=== PATIENT | female | born 1950 | race Caucasian/White ===

== ENCOUNTER → 2017-12-22 09:06 | Outpatient (CLI) | payer MEDICARE, OTHER, SELFPAY ==
[2017-12-22 11:06] LABS: Alanine Aminotransferase 24 IU/L (9-52); Aspartate Aminotransferase 22 IU/L (14-36); Blood Urea Nitrogen 21 mg/dL (7-17); Calcium 9.9 mg/dL (8.4-10.2); Carbon Dioxide 29 mmol/L (22-32); Chloride 101 mmol/L (98-107); Estimated Glomerular Filt Rate > 60.0 mL/min (>60); Glucose 98 mg/dL (80-110); HEMOLYSIS < 15 (0-50); Potassium 4.7 mmol/L (3.4-5.1); Sodium 141 mmol/L (137-145)
[2017-12-22 13:04] LABS: Cholesterol 202 mg/dL (140-199); HDL Cholesterol 50 mg/dL (40-60); LDL Cholesterol Calculated 82 mg/dL (<100); Triglycerides 349 mg/dL (35-150)
== END ==
PROVIDERS: PCP Internal Medicine; Visit Provider Internal Medicine
DX: M54.5 Low back pain (principal); E78.5 Hyperlipidemia, unspecified
CPT/HCPCS: 36415; 80048; 80061; 84450; 84460

== ENCOUNTER 2018-02-08 10:20 | Day surgery (SDC) | payer MEDICARE, OTHER, SELFPAY ==
--- NOTE | 2018-02-08 | PATH_ITS ---
[facility] Accession Number: [id number] . 01 Material submitted: . ASCENDING COLON POLYP . 02 Diagnosis: Ascending Colon, Polyp, Biopsy: Benign lymphoid aggregate. MRV/02/09/2018 . 02 Electronically signed: . Aleta Serrato MD, Pathologist NPI- [id number] . 01 Gross description: . Received one formalin-filled container labeled with the patient's name and labeled ascending colon polyp. The specimen consists of a 0.3 cm portion of tissue. Entirely submitted in one cassette. ([facility] – [place], [place]:[id number]) /[facility] . 02 Pathologist provided ICD-10: K63.5 . 02 CPT . 526410 Specimen Comment: A duplicate report has been generated due to demographic updates. Performed at: 01 [facility] [address] [id number] MD Lamin Conroy MD Phone: [phone] Performed at: 02 [facility] [address] [place] [id number] MD Norbert Quiroz MD Phone: [phone]
--- NOTE | 2018-02-08 10:35 | PM.HP.1 ---
History of Present Illness Date Patient Seen: 02/08/18 Chief complaint: colonoscopy [id number] Narrative: 67-year-old female with a history of hyperlipidemia and family history of anal cancer in her mother who is here for colon cancer screening is a primary procedure with no office consult. The patient has a history of a colonoscopy done around 10 years ago which had no findings. The patient currently has no active GI symptoms or alarm symptoms. Meds Home Medications Medication Instructions Recorded Confirmed Type gabapentin 300 mg PO DAILY 02/08/18 02/08/18 History lovastatin 40 mg PO DAILY 02/08/18 02/08/18 History Allergies Allergy/AdvReac Type Severity Reaction Status Date / Time amoxicillin [From Augmentin] Allergy Verified 02/08/18 10:44 clavulanic acid Allergy Verified 02/08/18 10:44 [From Augmentin] Review of Systems Review of Systems All systems reviewed & are unremarkable except as noted in HPI and below Exam Narrative Exam Narrative: General: Patient is overweight, not in apparent distress Cardiovascular: Regular rate and rhythm, no murmurs, rubs, or gallops; no evidence of edema; no palpable abdominal aortic aneurysm Gastrointestinal: Normoactive bowel sounds, soft, nontender, nondistended, no rebound tenderness, no hepatosplenomegaly, no evidence of hernia Assessment & Plan Plan: Assessment/Plan Narrative: 67-year-old female with a family history of anal cancer in her mother (80's) here for colon cancer screening. She has no active GI symptoms. She is at average risk for colorectal cancer given her mother's age. Regarding the procedure(s), the risks and potential complications, benefits, and alternatives (including not doing the procedure) were discussed with the patient. The risks include but are not limited to bleeding, infection, perforation which may require surgical intervention, missed lesions, and adverse reactions to sedative medicines. After a question and answer period, the patient agreed to proceed with the procedure(s) and gives informed consent.
[2018-02-08 10:36] VITALS: BP 142/85; PULSE 84; RESP 16; TEMP 36.9; O2SAT 94; BMI 28.3
[2018-02-08] MEDS: SODIUM CHLORIDE 0.9% 1,000 ML 70 ML IV (10:36)
[2018-02-08] MEDS: MIDAZOLAM 5 MG/5 ML VIAL IV (11:18)
[2018-02-08] MEDS: fentaNYL 250 MCG/5 ML INJ IV (11:18)
--- NOTE | 2018-02-08 11:33 | PM.OP.ENDO ---
Operative Date/Time/Diagnoses Date of procedure: 02/08/18 Procedure Notes Procedure in detail: Surgeon: Marvin Daniel MD Procedure: Colonoscopy with polypectomy Preoperative diagnosis: Colon cancer screening, family history anal cancer in patient's mother (80's) Postoperative diagnosis: Colon polyp status post polypectomy, sigmoid diverticulosis, grade 1 internal hemorrhoids Medications: Conscious sedation using 5 mg IV of Midazolam and 150 mcg IV of Fentanyl Preanesthesia Assessment An H and P was performed/updated and the Px?s ASA class is 2. The procedure was discussed in detail with the patient. The potential risks and complications including infection, bleeding, missed lesions, perforation, need for surgery in case of perforation, prolonged hospital stay, and were explained. A brief question and answer period was allotted and once all questions were answered, informed consent was obtained. The patient was brought back to the procedure room and placed on standard monitoring. The patient?s vital signs were monitored continuously throughout the entire procedure. Prior to starting, a timeout was performed to confirm the patient?s identity, allergies, medications, and procedure. Procedure in detail The patient was placed in left lateral decubitus position and once adequate sedation was obtained a KINZA was performed. The digital rectal examination did not reveal any palpable lesions. The tip of the colonoscope was placed in the anal canal and advanced without difficulty all the way to the cecum which was identified by the appendiceal orifice and the ileocecal valve. The terminal ileum was intubated to a distance of 5 cm from the ileocecal valve and the mucosa was normal. The colonoscope was brought back to the cecum and careful examination of all harvey of the colon was performed with irrigation of any residual stool. In the ascending colon, a 2 mm sessile polyp was found and was removed by means of cold Jumbo forceps. Excision and retrieval were complete with minimal bleeding. In the sigmoid colon, there were multiple medium and large-sized diverticula. Retroflexion was performed in the rectum and this revealed grade 1 internal hemorrhoids. There were no anal lesions seen on this exam. The patient tolerated the procedure well and will be brought back to the recovery area to be discharged once criteria are met. The prep was judged to be good and adequate to identify polyps less than 5 mm. The withdrawal time was 10 min. The total physician intraservice time was 22 min. Complications There were no complications and estimated blood loss was minimal. Recommendations: Resume previous diet Continue outPx medications Follow up pathology results Repeat colonoscopy in 5 or 10 years depending on pathology results An emergency contact number was given to the patient for any complications related to the procedure
[2018-02-08 11:36] VITALS: BP 127/79; PULSE 73; RESP 15; TEMP 36.3; O2SAT 95
--- NOTE | 2018-02-08 11:37 | PM.DS.1 ---
History of Present Illness Chief complaint: colonoscopy [id number] Narrative: 67-year-old female with a history of hyperlipidemia and family history of anal cancer in her mother who is here for colon cancer screening is a primary procedure with no office consult. The patient has a history of a colonoscopy done around 10 years ago which had no findings. The patient currently has no active GI symptoms or alarm symptoms. Discharge Providers Primary care physician: Lynn Roche MD Discharge provider: Marvin Daniel MD Exam Vital Signs (past 8 hours): - 02/08/18 10:36 Temperature 98.4 F Pulse Rate 84 Respiratory Rate 16 Blood Pressure 142/85 H Pulse Oximetry 94 Oxygen Delivery Method Room Air Narrative Exam Narrative: General: Patient is well developed, not in apparent distress Cardiovascular: Regular rate and rhythm, no murmurs, rubs, or gallops; no evidence of edema; no palpable abdominal aortic aneurysm Gastrointestinal: Normoactive bowel sounds, soft, nontender, nondistended, no rebound tenderness, no hepatosplenomegaly, no evidence of hernia Discharge Plan Discharge Plan Patient Disposition: Home Discharge Med Rec/Prescriptions Prescriptions: Continue gabapentin 300 mg Capsule 300 mg PO DAILY RF: 0 lovastatin 40 mg Tablet 40 mg PO DAILY RF: 0 Discharge Orders: Discharge (Order); Ordered 02/08/18 Ordered By: Marvin Daniel Provider Discharge Instructions Diet: Diet as Tolerated Visit Report/Discharge Packet Stand Alone Forms: Surgery Discharge Discharge Data Primary Care Provider: Lynn Roche Attending Provider: Marvin Daniel
[2018-02-08 11:41] VITALS: BP 139/87; PULSE 75; RESP 24; O2SAT 97
[2018-02-08 12:25] VITALS: BP 124/79; PULSE 65; RESP 20; TEMP 36.6; O2SAT 97
== END 2018-02-08 12:35 | disposition home or self-care (01) ==
PROVIDERS: PCP Internal Medicine; Visit Provider Internal Medicine Gastroenterology
PROC: 0DJD8ZZ Inspection of Lower Intestinal Tract, Via Natural or Artificial Opening Endoscopic (ICD-10-PCS; CPT 45378; principal; 2018-02-08 11:30)
DX: Z12.11 Encounter for screening for malignant neoplasm of colon (principal); Z80.0 Family history of malignant neoplasm of digestive organs; K57.30 Diverticulosis of large intestine without perforation or abscess without bleeding; K64.0 First degree hemorrhoids; E78.5 Hyperlipidemia, unspecified; K63.5 Polyp of colon
CPT/HCPCS: 45380; 88305; J2250; J3010

== ENCOUNTER → 2018-03-20 09:34 | Outpatient (CLI) | payer MEDICARE, OTHER, SELFPAY ==
--- NOTE | 2018-03-20 | DI.RAD.S_ITS ---
This blank DEXA report has been sent in error by the PACS system. The correct and complete report will be forthcoming in 1-2 days. Thank you for your patience and understanding. Dictated by: Scooter Carr M.D. on 03/20/2018 at 10:06 Approved by: Scooter Carr M.D. on 03/20/2018 at 10:09
== END ==
PROVIDERS: PCP Internal Medicine; Visit Provider Internal Medicine
DX: M85.852 Other specified disorders of bone density and structure, left thigh (principal); Z87.891 Personal history of nicotine dependence
CPT/HCPCS: 77080

== ENCOUNTER 2018-08-10 11:09 | Emergency (ER) | payer MEDICARE, OTHER, SELFPAY ==
[2018-08-10] VITALS (8 sets, daily range): BP systolic 127–166; BP diastolic 65–99; PULSE 89–123; RESP 18–22; TEMP 37.2; O2SAT 98–99; BMI 28.3
[2018-08-10] MEDS: SODIUM CHLORIDE 0.9% 1,000 ML 1000 ML IV (11:37)
[2018-08-10 11:39] LABS: Add Manual Diff / Slide Review NO; Basophils Absolute Auto 100 /uL (0-100); Basophils Percent Auto 0.3 % (0-2); Eosinophils Absolute Auto 0 /uL (0-450); Eosinophils Percent Auto 0.1 % (2-4); Hematocrit 44.9 % (36-46); Hemoglobin 14.9 g/dL (12.0-16.0); Lymphocytes Absolute Auto 1800 /uL (1100-4500); Lymphocytes Percent Auto 10.4 % (25-40); Mean Corpuscular HGB Conc 33.2 % (30-36); Mean Corpuscular Hemoglobin 30.9 PG (26-34); Mean Corpuscular Volume 93.1 fL (80-100); Monocytes Absolute Auto 1100 /uL (0-900); Monocytes Percent Auto 6.6 % (3-14); Neutrophils Absolute Auto 14100 /uL (1500-7000); Neutrophils Percent Auto 82.6 % (50-75); Platelet Count 304 X10^3/uL (150-400); Red Blood Cell Count 4.82 X10^6/uL (4.0-5.2); White Blood Cell Count 17.1 X10^3/uL (4.5-11.0)
[2018-08-10 11:49] LABS: Bacteria Urine Many (>30); Culture Indicated Urine Specimen Cultured; RBC Urine 5-10/HPF (0-5/HPF); WBC Urine 5-10/HPF (0-5/HPF)
[2018-08-10 11:57] LABS: Alanine Aminotransferase 28 IU/L (9-52); Albumin 4.9 g/dL (3.5-5.0); Albumin Globulin Ratio 1.6 (1.0-2.8); Alkaline Phosphatase 82 U/L (38-126); Aspartate Aminotransferase 23 IU/L (14-36); BUN Creatinine Ratio 31.7 (6-22); Bilirubin Total 0.6 mg/dL (0.2-1.3); Blood Urea Nitrogen 19 mg/dL (7-17); Calcium 9.9 mg/dL (8.4-10.2); Carbon Dioxide 24 mmol/L (22-32); Chloride 103 mmol/L (98-107); Estimated Glomerular Filt Rate > 60.0 mL/min (>60); Globulin 3.1 g/dL (1.7-4.1); Glucose 134 mg/dL (80-110); HEMOLYSIS < 15 (0-50); Potassium 3.9 mmol/L (3.4-5.1); Sodium 138 mmol/L (137-145)
--- NOTE | 2018-08-10 12:09 | ED.ABDPAIN ---
HPI - Abdominal Pain <Monica Castro PA-C - Last Filed: 08/10/18 21:44> General Chief Complaint: Abdominal Pain Stated Complaint: abdominal pain Time Seen by Provider: 08/10/18 11:14 Source: patient Mode of arrival: ambulatory Limitations: no limitations History of Present Illness HPI narrative: This 68-year-old female complains of onset abdominal pain sometime yesterday afternoon which has been worsening since. She states that the pain is ?like a horrible knife? in her central, lower abdomen. She states that the pain waxes and wanes where it will improve to some degree, then will have the knife like pain that can last up to a couple of minutes. She states pain is worse lying flat, a little bit better sitting up. No other exacerbating or alleviating features that she can tell. She states that she ate dinner last night and this did not seem to make any difference. She had coffee and half a muffin today at breakfast and no change. She denies fever, chills, sweats. She denies any nausea or vomiting. She denies any bowel habit changes or blood in the stools and had a normal bowel movement today. She denies any hematuria or new urinary symptoms. She denies any chest pain or dyspnea. She states that when she has the spasm like pain she can feel it a little bit in her back but she thinks that is the same area as her sciatica. She states that she took some ibuprofen last night without relief. She denies any other complaints on systems review Related Data Home Medications Medication Instructions Recorded Confirmed gabapentin 300 mg PO DAILY 02/08/18 02/08/18 lovastatin 40 mg PO DAILY 02/08/18 02/08/18 Previous Rx's Medication Instructions Recorded hydrocodone-acetaminophen [[place]] 1 tab PO Q4H PRN #14 tab 08/10/18 Allergies Allergy/AdvReac Type Severity Reaction Status Date / Time amoxicillin [From Augmentin] Allergy Verified 02/08/18 10:44 clavulanic acid Allergy Verified 02/08/18 10:44 [From Augmentin] Review of Systems <Monica Castro PA-C - Last Filed: 08/10/18 21:44> Review of Systems ROS Unobtainable: All systems reviewed & are unremarkable except as noted in HPI and below PFSH <GEOVANNA Cowan Last Filed: 08/10/18 21:44> Medical History Diverticulosis (Chronic) History of colon polyps (Chronic) Hyperlipidemia (Chronic) Sciatica (Chronic) Family history non-contributory (Resolved) Surgical History (Updated 08/10/18 @ 12:27 by Monica Castro PA-C) History of left wrist replacement (Resolved) Social History household members: spouse Smoking Status: Current some day smoker Social History household members: spouse Smoking Status: Current some day smoker Exam <Monica Castro PA-C - Last Filed: 08/10/18 21:44> Narrative Exam Narrative: GENERAL APPEARANCE: Patient sitting comfortably, in no distress. HEENT: PERRL, EOMI, no scleral icterus, normal oropharynx NECK: Supple LUNGS: Clear to auscultation bilaterally. HEART: Rate and rhythm regular, normal S1 and S2, no S3 or S4. ABDOMEN: Soft, nondistended, bowel sounds present x 4 quadrants, no masses palpable, no hepatosplenomegaly. lower quadrant midline tenderness to palpation without guarding or rebound. no lateral tenderness or CVAT EXTREMITIES: No edema DERMATOLOGIC: No jaundice or exanthem NEUROLOGIC: Alert and oriented with normal speech and coordination Initial Vital Signs Initial Vital Signs: Vital Signs Temperature 99.0 F 08/10/18 11:13 Pulse Rate 123 H 08/10/18 11:13 Respiratory Rate 08/10/18 11:13 Blood Pressure 166/99 H 08/10/18 11:13 Pulse Oximetry 99 08/10/18 11:13 <Lisa Messer MD - Last Filed: 08/20/18 07:36> Initial Vital Signs Initial Vital Signs: Vital Signs Temperature 99.0 F 08/10/18 11:13 Pulse Rate 123 H 08/10/18 11:13 Respiratory Rate 22 08/10/18 11:13 Blood Pressure 166/99 H 08/10/18 11:13 Pulse Oximetry 99 08/10/18 11:13 Course <Monica Castro PA-C - Last Filed: 08/10/18 21:44> Additional Information: The patient is feeling significantly improved at the time of discharge, she is feeling hungry. She is tolerating oral medications and does not have nausea currently, appears appropriate for outpatient treatment. First doses of Flagyl and Levaquin were given. She agreed to return if acutely worsening symptoms, otherwise will follow up with her PCP after a few days on antibiotics. Dietary instructions given Orders Ordered: Discontinued Medications Hydromorphone HCl (Dilaudid) 0.5 mg IV NOW ONE Stop: 08/10/18 12:19 Last Admin: 08/10/18 12:26 Dose: 0.5 mg Sodium Chloride (Normal Saline 0.9%) 1,000 mls @ 1,000 mls/hr IV BOLUS ONE Stop: 08/10/18 12:14 Last Infusion: 08/10/18 12:37 Dose: 0 mls/hr Admin: 08/10/18 11:37 Dose: 1,000 mls/hr Ketorolac Tromethamine (Toradol) 30 mg IV NOW ONE Stop: 08/10/18 12:19 Last Admin: 08/10/18 12:26 Dose: 30 mg Levofloxacin (Levaquin) 750 mg PO NOW ONE Stop: 08/10/18 13:38 Last Admin: 08/10/18 13:56 Dose: 750 mg Metronidazole (Metronidazole) 500 mg PO NOW ONE Stop: 08/10/18 13:38 Last Admin: 08/10/18 13:57 Dose: 500 mg Vital Signs - 8 hr 08/10/18 14:00 08/10/18 15:05 08/10/18 15:08 Pulse Rate 100 H 97 H 97 H Respiratory Rate 18 18 18 Blood Pressure 127/65 Blood Pressure [Left Arm] 135/83 127/65 Pulse Oximetry 98 98 98 <Lisa Messer MD - Last Filed: 08/20/18 07:36> Orders Ordered: Discontinued Medications Hydromorphone HCl (Dilaudid) 0.5 mg IV NOW ONE Stop: 08/10/18 12:19 Last Admin: 08/10/18 12:26 Dose: 0.5 mg Sodium Chloride (Normal Saline 0.9%) 1,000 mls @ 1,000 mls/hr IV BOLUS ONE Stop: 08/10/18 12:14 Last Infusion: 08/10/18 12:37 Dose: 0 mls/hr Admin: 08/10/18 11:37 Dose: 1,000 mls/hr Ketorolac Tromethamine (Toradol) 30 mg IV NOW ONE Stop: 08/10/18 12:19 Last Admin: 08/10/18 12:26 Dose: 30 mg Levofloxacin (Levaquin) 750 mg PO NOW ONE Stop: 08/10/18 13:38 Last Admin: 08/10/18 13:56 Dose: 750 mg Metronidazole (Metronidazole) 500 mg PO NOW ONE Stop: 08/10/18 13:38 Last Admin: 08/10/18 13:57 Dose: 500 mg Vital Signs - 8 hr 08/10/18 14:00 08/10/18 15:05 08/10/18 15:08 Pulse Rate 100 H 97 H 97 H Respiratory Rate 18 18 18 Blood Pressure 127/65 Blood Pressure [Left Arm] 135/83 127/65 Pulse Oximetry 98 98 98 MDM - Abdominal Pain <Monica Castro PA-C - Last Filed: 08/10/18 21:44> Lab Data Attestation: I reviewed the patient's lab results. Result diagrams: 08/10/18 11:30 08/10/18 11:30 Lab Results 08/10/18 08/10/18 08/10/18 Range/Units 11:14 11:24 11:30 WBC 17.1 H (4.5-11.0) X10^3/uL RBC 4.82 (4.0-5.2) X10^6/uL Hgb 14.9 (12.0-16.0) g/dL Hct 44.9 (36-46) % MCV 93.1 (80-100) fL MCH 30.9 (26-34) PG MCHC 33.2 (30-36) % RDW 13.0 (11.6-14.8) % Plt Count 304 (150-400) X10^3/uL Neut % (Auto) 82.6 H (50-75) % Lymph % (Auto) 10.4 L (25-40) % [place] % (Auto) 6.6 (3-14) % Eos % (Auto) 0.1 L (2-4) % Baso % (Auto) 0.3 (0-2) % Neut # (Auto) 72608 H (3595-9856) /uL Lymph # (Auto) 1800 (7991-5113) /uL [place] # (Auto) 1100 H (0-900) /uL Eos # (Auto) 0 (0-450) /uL Baso # (Auto) 100 (0-100) /uL Sodium (137-145) mmol/L Potassium (3.4-5.1) mmol/L Chloride (98-107) mmol/L Carbon Dioxide (22-32) mmol/L BUN (7-17) mg/dL Creatinine (0.52-1.04) mg/dL Estimated GFR (>60) mL/min BUN/Creatinine Ratio (6-22) Glucose (80-110) mg/dL Calcium (8.4-10.2) mg/dL Total Bilirubin (0.2-1.3) mg/dL AST (14-36) IU/L ALT (9-52) IU/L Alkaline Phosphatase (38-126) U/L Total Protein (6.3-8.2) g/dL Albumin (3.5-5.0) g/dL Globulin (1.7-4.1) g/dL Albumin/Globulin Ratio (1.0-2.8) Lipase 68 (23-300) U/L Urine RBC 5-10/hpf H (0-5/HPF) Urine WBC 5-10/hpf H (0-5/HPF) Urine Bacteria Many (>30) H (None) Ur Culture Indicated? Specimen cultured 08/10/18 Range/Units 11:30 WBC (4.5-11.0) X10^3/uL RBC (4.0-5.2) X10^6/uL Hgb (12.0-16.0) g/dL Hct (36-46) % MCV (80-100) fL MCH (26-34) PG MCHC (30-36) % RDW (11.6-14.8) % Plt Count (150-400) X10^3/uL Neut % (Auto) (50-75) % Lymph % (Auto) (25-40) % [place] % (Auto) (3-14) % Eos % (Auto) (2-4) % Baso % (Auto) (0-2) % Neut # (Auto) (9618-3022) /uL Lymph # (Auto) (4575-1939) /uL [place] # (Auto) (0-900) /uL Eos # (Auto) (0-450) /uL Baso # (Auto) (0-100) /uL Sodium 138 (137-145) mmol/L Potassium 3.9 (3.4-5.1) mmol/L Chloride 103 (98-107) mmol/L Carbon Dioxide 24 (22-32) mmol/L BUN 19 H (7-17) mg/dL Creatinine 0.60 (0.52-1.04) mg/dL Estimated GFR > 60.0 (>60) mL/min BUN/Creatinine Ratio 31.7 H (6-22) Glucose 134 H (80-110) mg/dL Calcium 9.9 (8.4-10.2) mg/dL Total Bilirubin 0.6 (0.2-1.3) mg/dL AST 23 (14-36) IU/L ALT 28 (9-52) IU/L Alkaline Phosphatase 82 (38-126) U/L Total Protein 8.0 (6.3-8.2) g/dL Albumin 4.9 (3.5-5.0) g/dL Globulin 3.1 (1.7-4.1) g/dL Albumin/Globulin Ratio 1.6 (1.0-2.8) Lipase (23-300) U/L Urine RBC (0-5/HPF) Urine WBC (0-5/HPF) Urine Bacteria (None) Ur Culture Indicated? Point of care testing: Urine Dip Bedside Urine Glucose 1000 mg/dl Bedside Urine Bilirubin - Negative Bedside Urine Ketone +/- 5 Urine Specific [place] 1.030 Bedside Urine Occult Blood +/- Bedside Urine pH 6.0 Bedside Urine Protein +/- 15 Bedside Urine Urobilinogen - Negative Bedside Urine Nitrite + Positive Bedside Urine Leukocytes +/- [address] scan - abdomen: Radiologist's impression: [address] [address] [address] Scan Report Signed Patient: Rima Soler#: [id number] : 2Acct:[id number] Age/Sex: 68 / FDate of Service: 08/10/18 Loc: ED Accession Number: [id number] Procedure: CT abdomen pelvis w con Ordering Provider: Fishfader,Monica P.A-C PROCEDURE: CT ABDOMEN PELVIS W CON INDICATIONS: central LQ pain, white count TECHNIQUE: After the administration of intravenous contrast, 5 mm thick sections acquired from the diaphragm to the symphysis. 5 mm coronal and sagittal reformats were acquired. For radiation dose reduction, the following was used: automated exposure control, adjustment of mA and/or kV according to patient size. COMPARISON: None. FINDINGS: Image quality: Excellent. ABDOMEN: Lung bases: There are mild centrilobular sinus changes in the lung bases. There is minimal dependent atelectasis. Heart size is normal. Solid organs: Evaluation of the liver demonstrates no focal hepatic lesions. The gallbladder appears within normal limits without calcified gallstones. Biliary system is non dilated. Pancreas enhances normally. Spleen is normal in size and enhancement. No adrenal nodules. Kidneys demonstrate normal size and enhancement, without hydronephrosis. There is a small left renal cyst. Peritoneum and bowel: Stomach and small loops demonstrate normal wall thickness and caliber. There is colonic diverticulosis with associated inflammatory peridiverticular fat stranding, segmental wall thickening, and small amount of free fluid involving the sigmoid colon consistent with acute diverticulitis. No definite diverticular abscess or macroscopic free air. The involved segment of the sigmoid colon extends along the dorsal aspect of the uterus with adjacent minimal inflammatory fat stranding. Nodes and vessels: No retroperitoneal or mesenteric adenopathy by size criteria. Aorta and inferior vena cava are normal in size. Miscellaneous: No ventral hernias. PELVIS: Genitourinary: Bladder wall thickness is normal. There is thickening of the endometrium measuring up to approximately 1.4 cm in thickness. No endometrial gas identified. Miscellaneous: No inguinal hernias or adenopathy. Bones: No suspicious bony lesions. No vertebral body compression fractures. IMPRESSION: 1. Sigmoid diverticulitis without diverticular abscess or macroscopic free air. Given the proximity of the adjacent 2. Abnormal endometrial thickening in a post menopausal female. Recommend further evaluation with pelvic ultrasound. No endometrial gas or other definite evidence of a fistula at this time. Findings discussed with Monica SANTIAGO on 08/10/18 at 1:20 PM. Dictated by: Lamin Bowman M.D. on 08/10/2018 at 13:14 Approved by: Lamin Bowman M.D. on 08/10/2018 at 13:22 <Lisa Messer MD - Last Filed: 08/20/18 07:36> Lab Data Lab Results 08/10/18 08/10/18 08/10/18 Range/Units 11:14 11:24 11:30 WBC 17.1 H (4.5-11.0) X10^3/uL RBC 4.82 (4.0-5.2) X10^6/uL Hgb 14.9 (12.0-16.0) g/dL Hct 44.9 (36-46) % MCV 93.1 (80-100) fL MCH 30.9 (26-34) PG MCHC 33.2 (30-36) % RDW 13.0 (11.6-14.8) % Plt Count 304 (150-400) X10^3/uL Neut % (Auto) 82.6 H (50-75) % Lymph % (Auto) 10.4 L (25-40) % [place] % (Auto) 6.6 (3-14) % Eos % (Auto) 0.1 L (2-4) % Baso % (Auto) 0.3 (0-2) % Neut # (Auto) 95758 H (6855-4976) /uL Lymph # (Auto) 1800 (0571-4551) /uL [place] # (Auto) 1100 H (0-900) /uL Eos # (Auto) 0 (0-450) /uL Baso # (Auto) 100 (0-100) /uL Sodium (137-145) mmol/L Potassium (3.4-5.1) mmol/L Chloride (98-107) mmol/L Carbon Dioxide (22-32) mmol/L BUN (7-17) mg/dL Creatinine (0.52-1.04) mg/dL Estimated GFR (>60) mL/min BUN/Creatinine Ratio (6-22) Glucose (80-110) mg/dL Calcium (8.4-10.2) mg/dL Total Bilirubin (0.2-1.3) mg/dL AST (14-36) IU/L ALT (9-52) IU/L Alkaline Phosphatase (38-126) U/L Total Protein (6.3-8.2) g/dL Albumin (3.5-5.0) g/dL Globulin (1.7-4.1) g/dL Albumin/Globulin Ratio (1.0-2.8) Lipase 68 (23-300) U/L Urine RBC 5-10/hpf H (0-5/HPF) Urine WBC 5-10/hpf H (0-5/HPF) Urine Bacteria Many (>30) H (None) Ur Culture Indicated? Specimen cultured 08/10/18 Range/Units 11:30 WBC (4.5-11.0) X10^3/uL RBC (4.0-5.2) X10^6/uL Hgb (12.0-16.0) g/dL Hct (36-46) % MCV (80-100) fL MCH (26-34) PG MCHC (30-36) % RDW (11.6-14.8) % Plt Count (150-400) X10^3/uL Neut % (Auto) (50-75) % Lymph % (Auto) (25-40) % [place] % (Auto) (3-14) % Eos % (Auto) (2-4) % Baso % (Auto) (0-2) % Neut # (Auto) (7202-7116) /uL Lymph # (Auto) (0550-8566) /uL [place] # (Auto) (0-900) /uL Eos # (Auto) (0-450) /uL Baso # (Auto) (0-100) /uL Sodium 138 (137-145) mmol/L Potassium 3.9 (3.4-5.1) mmol/L Chloride 103 (98-107) mmol/L Carbon Dioxide 24 (22-32) mmol/L BUN 19 H (7-17) mg/dL Creatinine 0.60 (0.52-1.04) mg/dL Estimated GFR > 60.0 (>60) mL/min BUN/Creatinine Ratio 31.7 H (6-22) Glucose 134 H (80-110) mg/dL Calcium 9.9 (8.4-10.2) mg/dL Total Bilirubin 0.6 (0.2-1.3) mg/dL AST 23 (14-36) IU/L ALT 28 (9-52) IU/L Alkaline Phosphatase 82 (38-126) U/L Total Protein 8.0 (6.3-8.2) g/dL Albumin 4.9 (3.5-5.0) g/dL Globulin 3.1 (1.7-4.1) g/dL Albumin/Globulin Ratio 1.6 (1.0-2.8) Lipase (23-300) U/L Urine RBC (0-5/HPF) Urine WBC (0-5/HPF) Urine Bacteria (None) Ur Culture Indicated? Point of care testing: Urine Dip Bedside Urine Glucose 1000 mg/dl Bedside Urine Bilirubin - Negative Bedside Urine Ketone +/- 5 Urine Specific [place] 1.030 Bedside Urine Occult Blood +/- Bedside Urine pH 6.0 Bedside Urine Protein +/- 15 Bedside Urine Urobilinogen - Negative Bedside Urine Nitrite + Positive Bedside Urine Leukocytes +/- 15 Esterase Discharge Plan Departure Patient Disposition: Home Clinical Impression: Diverticulitis Discharge Date/Time: 08/10/18 15:09 Interventions: ED Discharge Assessment Last Done: 08/10/18 15:08 Instructions: Diverticulitis Activity Restrictions/Additional Instructions: You should return as we talked about if you have acutely worsening symptoms, i.e. worsening pain, new high fever or inability to keep down fluids or your medicine. If you are able to keep down your medicines and fluids, we can typically treat diverticulitis at home. You will be due for your 2nd dose of levofloxacin tomorrow afternoon, and your next dose of metronidazole this evening, so please pick these up at the pharmacy on your way home. I have sent in a prescription for a little bit of antinausea medicine if you do start to have some nausea, but you do not need to take this unless it is needed. You can take ibuprofen at home, 6-800 mg every 8 hours to help with pain, and you can take the hydrocodone/acetaminophen in addition to this as needed (remember not to drive as that may make you sleepy). Please drink clear fluids and broth today, and you can have a little bit of Jell-O if you wish. If you are feeling better tomorrow, you can start on a very bland diet, i.e. tea, applesauce, bananas, white rice, white toast (no spreads). From there, you can slowly advance your diet (i.e. plain pasta or baked potato without skin) as you tolerate, but stick to low residue foods. Please see your PCP for recheck in about 3 days to make sure you are getting better as expected It was noted coincidentally on your scan today that the lining of your uterus is thicker than is typical for a postmenopausal woman, so please set up a gynecology appointment for when you are feeling better to evaluate this further. I have given you the number for Dr. Mullins who is production assembly supervisor today but you could see any of her associates as well (let them know you were referred by us) Prescriptions: New hydrocodone-acetaminophen [[place]] 5-325 mg tablet 1 tab PO Q4H PRN (Reason: acute diverticulitis pain) Qty: 14 RF: 0 No Action gabapentin 300 mg Capsule 300 mg PO DAILY RF: 0 lovastatin 40 mg Tablet 40 mg PO DAILY RF: 0 Referrals: Padmini Mullins MD [Physician] - Lynn Roche MD [Primary Care Provider] -
[2018-08-10] MEDS: KETOROLAC 60 MG/2 ML VIAL 30 MG IV (12:26)
[2018-08-10] MEDS: HYDROMORPHONE 1 MG INJ 0.5 MG IV (12:26)
--- NOTE | 2018-08-10 12:30 | ED_ITS ---
HPI - Abdominal Pain <Monica Castro PA-C - Last Filed: 08/10/18 21:44> General Chief Complaint: Abdominal Pain Stated Complaint: abdominal pain Time Seen by Provider: 08/10/18 11:14 Source: patient Mode of arrival: ambulatory Limitations: no limitations History of Present Illness HPI narrative: This 68-year-old female complains of onset abdominal pain sometime yesterday afternoon which has been worsening since. She states that the pain is ?like a horrible knife? in her central, lower abdomen. She states that the pain waxes and wanes where it will improve to some degree, then will have the knife like pain that can last up to a couple of minutes. She states pain is worse lying flat, a little bit better sitting up. No other exacerbating or alleviating features that she can tell. She states that she ate dinner last night and this did not seem to make any difference. She had coffee and half a muffin today at breakfast and no change. She denies fever, chills, sweats. She denies any nausea or vomiting. She denies any bowel habit changes or blood in the stools and had a normal bowel movement today. She denies any hematuria or new urinary symptoms. She denies any chest pain or dyspnea. She states that when she has the spasm like pain she can feel it a little bit in her back but she thinks that is the same area as her sciatica. She states that she took some ibuprofen last night without relief. She denies any other complaints on systems review Related Data Home Medications Medication Instructions Recorded Confirmed gabapentin 300 mg PO DAILY 02/08/18 02/08/18 lovastatin 40 mg PO DAILY 02/08/18 02/08/18 Previous Rx's Medication Instructions Recorded hydrocodone-acetaminophen [Kent] 1 tab PO Q4H PRN #14 tab 08/10/18 Allergies Allergy/AdvReac Type Severity Reaction Status Date / Time amoxicillin [From Augmentin] Allergy Verified 02/08/18 10:44 clavulanic acid Allergy Verified 02/08/18 10:44 [From Augmentin] Review of Systems <oMnica Castro PA-C - Last Filed: 08/10/18 21:44> Review of Systems ROS Unobtainable: All systems reviewed & are unremarkable except as noted in HPI and below PFSH <GEOVANNA Cowan Last Filed: 08/10/18 21:44> Medical History Diverticulosis (Chronic) History of colon polyps (Chronic) Hyperlipidemia (Chronic) Sciatica (Chronic) Family history non-contributory (Resolved) Surgical History (Updated 08/10/18 @ 12:27 by Monica Castro PA-C) History of left wrist replacement (Resolved) Social History household members: spouse Smoking Status: Current some day smoker Social History household members: spouse Smoking Status: Current some day smoker Exam <Monica Castro PA-C - Last Filed: 08/10/18 21:44> Narrative Exam Narrative: GENERAL APPEARANCE: Patient sitting comfortably, in no distress. HEENT: PERRL, EOMI, no scleral icterus, normal oropharynx NECK: Supple LUNGS: Clear to auscultation bilaterally. HEART: Rate and rhythm regular, normal S1 and S2, no S3 or S4. ABDOMEN: Soft, nondistended, bowel sounds present x 4 quadrants, no masses palpable, no hepatosplenomegaly. lower quadrant midline tenderness to palpation without guarding or rebound. no lateral tenderness or CVAT EXTREMITIES: No edema DERMATOLOGIC: No jaundice or exanthem NEUROLOGIC: Alert and oriented with normal speech and coordination Initial Vital Signs Initial Vital Signs: Vital Signs Temperature 99.0 F 08/10/18 11:13 Pulse Rate 123 H 08/10/18 11:13 Respiratory Rate 08/10/18 11:13 Blood Pressure 166/99 H 08/10/18 11:13 Pulse Oximetry 99 08/10/18 11:13 <Lisa Messer MD - Last Filed: 08/20/18 07:36> Initial Vital Signs Initial Vital Signs: Vital Signs Temperature 99.0 F 08/10/18 11:13 Pulse Rate 123 H 08/10/18 11:13 Respiratory Rate 22 08/10/18 11:13 Blood Pressure 166/99 H 08/10/18 11:13 Pulse Oximetry 99 08/10/18 11:13 Course <Monica Castro PA-C - Last Filed: 08/10/18 21:44> Additional Information: The patient is feeling significantly improved at the time of discharge, she is feeling hungry. She is tolerating oral medications and does not have nausea currently, appears appropriate for outpatient treatment. First doses of Flagyl and Levaquin were given. She agreed to return if acutely worsening symptoms, otherwise will follow up with her PCP after a few days on antibiotics. Dietary instructions given Orders Ordered: Discontinued Medications Hydromorphone HCl (Dilaudid) 0.5 mg IV NOW ONE Stop: 08/10/18 12:19 Last Admin: 08/10/18 12:26 Dose: 0.5 mg Sodium Chloride (Normal Saline 0.9%) 1,000 mls @ 1,000 mls/hr IV BOLUS ONE Stop: 08/10/18 12:14 Last Infusion: 08/10/18 12:37 Dose: 0 mls/hr Admin: 08/10/18 11:37 Dose: 1,000 mls/hr Ketorolac Tromethamine (Toradol) 30 mg IV NOW ONE Stop: 08/10/18 12:19 Last Admin: 08/10/18 12:26 Dose: 30 mg Levofloxacin (Levaquin) 750 mg PO NOW ONE Stop: 08/10/18 13:38 Last Admin: 08/10/18 13:56 Dose: 750 mg Metronidazole (Metronidazole) 500 mg PO NOW ONE Stop: 08/10/18 13:38 Last Admin: 08/10/18 13:57 Dose: 500 mg Vital Signs - 8 hr 08/10/18 14:00 08/10/18 15:05 08/10/18 15:08 Pulse Rate 100 H 97 H 97 H Respiratory Rate 18 18 18 Blood Pressure 127/65 Blood Pressure [Left Arm] 135/83 127/65 Pulse Oximetry 98 98 98 <Lisa Messer MD - Last Filed: 08/20/18 07:36> Orders Ordered: Discontinued Medications Hydromorphone HCl (Dilaudid) 0.5 mg IV NOW ONE Stop: 08/10/18 12:19 Last Admin: 08/10/18 12:26 Dose: 0.5 mg Sodium Chloride (Normal Saline 0.9%) 1,000 mls @ 1,000 mls/hr IV BOLUS ONE Stop: 08/10/18 12:14 Last Infusion: 08/10/18 12:37 Dose: 0 mls/hr Admin: 08/10/18 11:37 Dose: 1,000 mls/hr Ketorolac Tromethamine (Toradol) 30 mg IV NOW ONE Stop: 08/10/18 12:19 Last Admin: 08/10/18 12:26 Dose: 30 mg Levofloxacin (Levaquin) 750 mg PO NOW ONE Stop: 08/10/18 13:38 Last Admin: 08/10/18 13:56 Dose: 750 mg Metronidazole (Metronidazole) 500 mg PO NOW ONE Stop: 08/10/18 13:38 Last Admin: 08/10/18 13:57 Dose: 500 mg Vital Signs - 8 hr 08/10/18 14:00 08/10/18 15:05 08/10/18 15:08 Pulse Rate 100 H 97 H 97 H Respiratory Rate 18 18 18 Blood Pressure 127/65 Blood Pressure [Left Arm] 135/83 127/65 Pulse Oximetry 98 98 98 MDM - Abdominal Pain <Monica Castro PA-C - Last Filed: 08/10/18 21:44> Lab Data Attestation: I reviewed the patient's lab results. Result diagrams: 08/10/18 11:30 08/10/18 11:30 Lab Results 08/10/18 08/10/18 08/10/18 Range/Units 11:14 11:24 11:30 WBC 17.1 H (4.5-11.0) X10^3/uL RBC 4.82 (4.0-5.2) X10^6/uL Hgb 14.9 (12.0-16.0) g/dL Hct 44.9 (36-46) % MCV 93.1 (80-100) fL MCH 30.9 (26-34) PG MCHC 33.2 (30-36) % RDW 13.0 (11.6-14.8) % Plt Count 304 (150-400) X10^3/uL Neut % (Auto) 82.6 H (50-75) % Lymph % (Auto) 10.4 L (25-40) % Kend[place] % (Auto) 6.6 (3-14) % Eos % (Auto) 0.1 L (2-4) % Baso % (Auto) 0.3 (0-2) % Neut # (Auto) 20170 H (7930-3355) /uL Lymph # (Auto) 1800 (3066-2283) /uL Kend[place] # (Auto) 1100 H (0-900) /uL Eos # (Auto) 0 (0-450) /uL Baso # (Auto) 100 (0-100) /uL Sodium (137-145) mmol/L Potassium (3.4-5.1) mmol/L Chloride (98-107) mmol/L Carbon Dioxide (22-32) mmol/L BUN (7-17) mg/dL Creatinine (0.52-1.04) mg/dL Estimated GFR (>60) mL/min BUN/Creatinine Ratio (6-22) Glucose (80-110) mg/dL Calcium (8.4-10.2) mg/dL Total Bilirubin (0.2-1.3) mg/dL AST (14-36) IU/L ALT (9-52) IU/L Alkaline Phosphatase (38-126) U/L Total Protein (6.3-8.2) g/dL Albumin (3.5-5.0) g/dL Globulin (1.7-4.1) g/dL Albumin/Globulin Ratio (1.0-2.8) Lipase 68 (23-300) U/L Urine RBC 5-10/hpf H (0-5/HPF) Urine WBC 5-10/hpf H (0-5/HPF) Urine Bacteria Many (>30) H (None) Ur Culture Indicated? Specimen cultured 08/10/18 Range/Units 11:30 WBC (4.5-11.0) X10^3/uL RBC (4.0-5.2) X10^6/uL Hgb (12.0-16.0) g/dL Hct (36-46) % MCV (80-100) fL MCH (26-34) PG MCHC (30-36) % RDW (11.6-14.8) % Plt Count (150-400) X10^3/uL Neut % (Auto) (50-75) % Lymph % (Auto) (25-40) % Kend[place] % (Auto) (3-14) % Eos % (Auto) (2-4) % Baso % (Auto) (0-2) % Neut # (Auto) (6626-1183) /uL Lymph # (Auto) (4487-2816) /uL Kendall # (Auto) (0-900) /uL Eos # (Auto) (0-450) /uL Baso # (Auto) (0-100) /uL Sodium 138 (137-145) mmol/L Potassium 3.9 (3.4-5.1) mmol/L Chloride 103 (98-107) mmol/L Carbon Dioxide 24 (22-32) mmol/L BUN 19 H (7-17) mg/dL Creatinine 0.60 (0.52-1.04) mg/dL Estimated GFR > 60.0 (>60) mL/min BUN/Creatinine Ratio 31.7 H (6-22) Glucose 134 H (80-110) mg/dL Calcium 9.9 (8.4-10.2) mg/dL Total Bilirubin 0.6 (0.2-1.3) mg/dL AST 23 (14-36) IU/L ALT 28 (9-52) IU/L Alkaline Phosphatase 82 (38-126) U/L Total Protein 8.0 (6.3-8.2) g/dL Albumin 4.9 (3.5-5.0) g/dL Globulin 3.1 (1.7-4.1) g/dL Albumin/Globulin Ratio 1.6 (1.0-2.8) Lipase (23-300) U/L Urine RBC (0-5/HPF) Urine WBC (0-5/HPF) Urine Bacteria (None) Ur Culture Indicated? Point of care testing: Urine Dip Bedside Urine Glucose 1000 mg/dl Bedside Urine Bilirubin - Negative Bedside Urine Ketone +/- 5 Urine Specific [place] 1.030 Bedside Urine Occult Blood +/- Bedside Urine pH 6.0 Bedside Urine Protein +/- 15 Bedside Urine Urobilinogen - Negative Bedside Urine Nitrite + Positive Bedside Urine Leukocytes +/- [address] scan - abdomen: Radiologist's impression: [address] [address] [address] Scan Report Signed Patient: Rima Soler#: [id number] : 2Acct:[id number] Age/Sex: 68 / FDate of Service: 08/10/18 Loc: ED Accession Number: [id number] Procedure: CT abdomen pelvis w con Ordering Provider: Fishfader,Monica P.A-C PROCEDURE: CT ABDOMEN PELVIS W CON INDICATIONS: central LQ pain, white count TECHNIQUE: After the administration of intravenous contrast, 5 mm thick sections acquired from the diaphragm to the symphysis. 5 mm coronal and sagittal reformats were acquired. For radiation dose reduction, the following was used: automated exposure control, adjustment of mA and/or kV according to patient size. COMPARISON: None. FINDINGS: Image quality: Excellent. ABDOMEN: Lung bases: There are mild centrilobular sinus changes in the lung bases. There is minimal dependent atelectasis. Heart size is normal. Solid organs: Evaluation of the liver demonstrates no focal hepatic lesions. The gallbladder appears within normal limits without calcified gallstones. Biliary system is non dilated. Pancreas enhances normally. Spleen is normal in size and enhancement. No adrenal nodules. Kidneys demonstrate normal size and enhancement, without hydronephrosis. There is a small left renal cyst. Peritoneum and bowel: Stomach and small loops demonstrate normal wall thickness and caliber. There is colonic diverticulosis with associated inflammatory peridiver ticular fat stranding, segmental wall thickening, and small amount of free fluid involving the sigmoid colon consistent with acute diverticulitis. No definite diverticular abscess or macroscopic free air. The involved segment of the sigmoid colon extends along the dorsal aspect of the uterus with adjacent minimal inflammatory fat stranding. Nodes and vessels: No retroperitoneal or mesenteric adenopathy by size criteria. Aorta and inferior vena cava are normal in size. Miscellaneous: No ventral hernias. PELVIS: Genitourinary: Bladder wall thickness is normal. There is thickening of the endometrium measuring up to approximately 1.4 cm in thickness. No endometrial gas identified. Miscellaneous: No inguinal hernias or adenopathy. Bones: No suspicious bony lesions. No vertebral body compression fractures. IMPRESSION: 1. Sigmoid diverticulitis without diverticular abscess or macroscopic free air. Given the proximity of the adjacent 2. Abnormal endometrial thickening in a post menopausal female. Recommend further evaluation with pelvic ultrasound. No endometrial gas or other definite evidence of a fistula at this time. Findings discussed with Monica SANTIAGO on 08/10/18 at 1:20 PM. Dictated by: Lamin Bowman M.D. on 08/10/2018 at 13:14 Approved by: Lamin Bowman M.D. on 08/10/2018 at 13:22 <Lisa Messer MD - Last Filed: 08/20/18 07:36> Lab Data Lab Results 08/10/18 08/10/18 08/10/18 Range/Units 11:14 11:24 11:30 WBC 17.1 H (4.5-11.0) X10^3/uL RBC 4.82 (4.0-5.2) X10^6/uL Hgb 14.9 (12.0-16.0) g/dL Hct 44.9 (36-46) % MCV 93.1 (80-100) fL MCH 30.9 (26-34) PG MCHC 33.2 (30-36) % RDW 13.0 (11.6-14.8) % Plt Count 304 (150-400) X10^3/uL Neut % (Auto) 82.6 H (50-75) % Lymph % (Auto) 10.4 L (25-40) % Kend[place] % (Auto) 6.6 (3-14) % Eos % (Auto) 0.1 L (2-4) % Baso % (Auto) 0.3 (0-2) % Neut # (Auto) 32230 H (4122-1938) /uL Lymph # (Auto) 1800 (1615-4938) /uL [place] # (Auto) 1100 H (0-900) /uL Eos # (Auto) 0 (0-450) /uL Baso # (Auto) 100 (0-100) /uL Sodium (137-145) mmol/L Potassium (3.4-5.1) mmol/L Chloride (98-107) mmol/L Carbon Dioxide (22-32) mmol/L BUN (7-17) mg/dL Creatinine (0.52-1.04) mg/dL Estimated GFR (>60) mL/min BUN/Creatinine Ratio (6-22) Glucose (80-110) mg/dL Calcium (8.4-10.2) mg/dL Total Bilirubin (0.2-1.3) mg/dL AST (14-36) IU/L ALT (9-52) IU/L Alkaline Phosphatase (38-126) U/L Total Protein (6.3-8.2) g/dL Albumin (3.5-5.0) g/dL Globulin (1.7-4.1) g/dL Albumin/Globulin Ratio (1.0-2.8) Lipase 68 (23-300) U/L Urine RBC 5-10/hpf H (0-5/HPF) Urine WBC 5-10/hpf H (0-5/HPF) Urine Bacteria Many (>30) H (None) Ur Culture Indicated? Specimen cultured 08/10/18 Range/Units 11:30 WBC (4.5-11.0) X10^3/uL RBC (4.0-5.2) X10^6/uL Hgb (12.0-16.0) g/dL Hct (36-46) % MCV (80-100) fL MCH (26-34) PG MCHC (30-36) % RDW (11.6-14.8) % Plt Count (150-400) X10^3/uL Neut % (Auto) (50-75) % Lymph % (Auto) (25-40) % [place] % (Auto) (3-14) % Eos % (Auto) (2-4) % Baso % (Auto) (0-2) % Neut # (Auto) (3861-7561) /uL Lymph # (Auto) (1858-3055) /uL [place] # (Auto) (0-900) /uL Eos # (Auto) (0-450) /uL Baso # (Auto) (0-100) /uL Sodium 138 (137-145) mmol/L Potassium 3.9 (3.4-5.1) mmol/L Chloride 103 (98-107) mmol/L Carbon Dioxide 24 (22-32) mmol/L BUN 19 H (7-17) mg/dL Creatinine 0.60 (0.52-1.04) mg/dL Estimated GFR > 60.0 (>60) mL/min BUN/Creatinine Ratio 31.7 H (6-22) Glucose 134 H (80-110) mg/dL Calcium 9.9 (8.4-10.2) mg/dL Total Bilirubin 0.6 (0.2-1.3) mg/dL AST 23 (14-36) IU/L ALT 28 (9-52) IU/L Alkaline Phosphatase 82 (38-126) U/L Total Protein 8.0 (6.3-8.2) g/dL Albumin 4.9 (3.5-5.0) g/dL Globulin 3.1 (1.7-4.1) g/dL Albumin/Globulin Ratio 1.6 (1.0-2.8) Lipase (23-300) U/L Urine RBC (0-5/HPF) Urine WBC (0-5/HPF) Urine Bacteria (None) Ur Culture Indicated? Point of care testing: Urine Dip Bedside Urine Glucose 1000 mg/dl Bedside Urine Bilirubin - Negative Bedside Urine Ketone +/- 5 Urine Specific [place] 1.030 Bedside Urine Occult Blood +/- Bedside Urine pH 6.0 Bedside Urine Protein +/- 15 Bedside Urine Urobilinogen - Negative Bedside Urine Nitrite + Positive Bedside Urine Leukocytes +/- 15 Esterase Discharge Plan Departure Patient Disposition: Home Clinical Impression: Diverticulitis Discharge Date/Time: 08/10/18 15:09 Interventions: ED Discharge Assessment Last Done: 08/10/18 15:08 Instructions: Diverticulitis Activity Restrictions/Additional Instructions: You should return as we talked about if you have acutely worsening symptoms, i.e. worsening pain, new high fever or inability to keep down fluids or your medicine. If you are able to keep down your medicines and fluids, we can typically treat diverticulitis at home. You will be due for your 2nd dose of levofloxacin tomorrow afternoon, and your next dose of metronidazole this evening, so please pick these up at the pharmacy on your way home. I have sent in a prescription for a little bit of antinausea medicine if you do start to have some nausea, but you do not need to take this unless it is needed. You can take ibuprofen at home, 6-800 mg every 8 hours to help with pain, and you can take the hydrocodone/acetaminophen in addition to this as needed (remember not to drive as that may make you sleepy). Please drink clear fluids and broth today, and you can have a little bit of Jell-O if you wish. If you are feeling better tomorrow, you can start on a very bland diet, i.e. tea, applesauce, bananas, white rice, white toast (no spreads). From there, you can slowly advance your diet (i.e. plain pasta or baked potato without skin) as you tolerate, but stick to low residue foods. Please see your PCP for recheck in about 3 days to make sure you are getting better as expected It was noted coincidentally on your scan today that the lining of your uterus is thicker than is typical for a postmenopausal woman, so please set up a gynecology appointment for when you are feeling better to evaluate this further. I have given you the number for Dr. Mullins who is airport operations coordinator today but you could see any of her associates as well (let them know you were referred by us) Prescriptions: New hydrocodone-acetaminophen [Kent] 5-325 mg tablet 1 tab PO Q4H PRN (Reason: acute diverticulitis pain) Qty: 14 RF: 0 No Action gabapentin 300 mg Capsule 300 mg PO DAILY RF: 0 lovastatin 40 mg Tablet 40 mg PO DAILY RF: 0 Referrals: Padmini Mullins MD [Physician] - Lynn Roche MD [Primary Care Provider] -
--- NOTE | 2018-08-10 12:36 | DI.CT.S_ITS ---
PROCEDURE: CT ABDOMEN PELVIS W CON INDICATIONS: central LQ pain, white count TECHNIQUE: After the administration of intravenous contrast, 5 mm thick sections acquired from the diaphragm to the symphysis. 5 mm coronal and sagittal reformats were acquired. For radiation dose reduction, the following was used: automated exposure control, adjustment of mA and/or kV according to patient size. COMPARISON: None. FINDINGS: Image quality: Excellent. ABDOMEN: Lung bases: There are mild centrilobular sinus changes in the lung bases. There is minimal dependent atelectasis. Heart size is normal. Solid organs: Evaluation of the liver demonstrates no focal hepatic lesions. The gallbladder appears within normal limits without calcified gallstones. Biliary system is non dilated. Pancreas enhances normally. Spleen is normal in size and enhancement. No adrenal nodules. Kidneys demonstrate normal size and enhancement, without hydronephrosis. There is a small left renal cyst. Peritoneum and bowel: Stomach and small loops demonstrate normal wall thickness and caliber. There is colonic diverticulosis with associated inflammatory peridiverticular fat stranding, segmental wall thickening, and small amount of free fluid involving the sigmoid colon consistent with acute diverticulitis. No definite diverticular abscess or macroscopic free air. The involved segment of the sigmoid colon extends along the dorsal aspect of the uterus with adjacent minimal inflammatory fat stranding. Nodes and vessels: No retroperitoneal or mesenteric adenopathy by size criteria. Aorta and inferior vena cava are normal in size. Miscellaneous: No ventral hernias. PELVIS: Genitourinary: Bladder wall thickness is normal. There is thickening of the endometrium measuring up to approximately 1.4 cm in thickness. No endometrial gas identified. Miscellaneous: No inguinal hernias or adenopathy. Bones: No suspicious bony lesions. No vertebral body compression fractures. IMPRESSION: 1. Sigmoid diverticulitis without diverticular abscess or macroscopic free air. Given the proximity of the adjacent 2. Abnormal endometrial thickening in a post menopausal female. Recommend further evaluation with pelvic ultrasound. No endometrial gas or other definite evidence of a fistula at this time. Findings discussed with Monica SANTIAGO on 08/10/18 at 1:20 PM. Dictated by: Lamin Bowman M.D. on 08/10/2018 at 13:14 Approved by: Lamin Bowman M.D. on 08/10/2018 at 13:22
[2018-08-10 12:37] LABS: Lipase 68 U/L (23-300)
[2018-08-10] MEDS: levoFLOXacin 250 MG TABLET 750 MG PO (13:56)
[2018-08-10] MEDS: metroNIDAZOLE 500 MG TABLET PO (13:57)
== END 2018-08-10 15:09 | disposition home or self-care (01) ==
PROVIDERS: Emergency Medicine; Emergency Provider Internal Medicine; PCP Internal Medicine
DX: K57.92 Diverticulitis of intestine, part unspecified, without perforation or abscess without bleeding (principal)
CPT/HCPCS: 36591; 74177; 80053; 81003; 81015; 83690; 85025; 87077; 87086; 87186; 96361; 96374; 96375; 99283; 99284; J1170; J1885; Q9967

== ENCOUNTER → 2018-08-25 09:19 | Outpatient (CLI) | payer MEDICARE, OTHER, SELFPAY ==
--- NOTE | 2018-08-25 09:21 | DI.US.S_ITS ---
PROCEDURE: US PELVIC COMPLETE INDICATIONS: Endometrial thickening in postmenopausal female TECHNIQUE: Real-time scanning was performed of the pelvic organs, with image documentation. Additional endovaginal scanning was necessary due to incomplete visualization of the adnexal and endometrial structures by transabdominal scanning. COMPARISON: [facility], CT, CT ABDOMEN PELVIS W CON, 08/10/2018, 12:34. FINDINGS: Transabdominal scanning: Limited scanning through the kidneys shows no hydronephrosis. No pathologic free abdominal or pelvic fluid. Endovaginal scanning: Uterus: Uterus is normal in size at 4.6 x 3.0 x 6.9 cm. The endometrium measures 18.4 mm in combined thickness, abnormal in a postmenopausal patient. The endometrial lining thickness is heterogeneous and contains internal arterial and venous flow.. Ovaries: Not seen due to overlying bowel gas and presumed postmenopausal ovarian atrophy. IMPRESSION: Abnormal postmenopausal endometrial thickening up to 1.8 cm, with an appearance likely representing evidence of endometrial carcinoma or other cause of endometrial hyperplasia. Biopsy is recommended. Dictated by: Scooter Carr M.D. on 08/25/2018 at 12:04 Approved by: Scooter Carr M.D. on 08/25/2018 at 12:06
== END ==
PROVIDERS: PCP Internal Medicine; Visit Provider Specialist
DX: R93.89 Abnormal findings on diagnostic imaging of other specified body structures (principal); Z78.0 Asymptomatic menopausal state
CPT/HCPCS: 76856